=== PATIENT | female | born 1950 ===

== ENCOUNTER 2017-09-01 12:44 | Outpatient (CLI) | payer MEDICARE ==
--- NOTE | 2017-09-01 13:58 | RAD ---
TWO VIEWS RIGHT HIP: COMPARISON: None. HISTORY: Fell twice in the last few months with right lateral hip pain. FINDINGS: Two views of the right hip show no evidence of acute fracture or dislocation. There are moderate deg enerative changes in the right hip joint. No soft tissue swelling is seen. IMPRESSION: Moderate right hip osteoarthritis without acute osseous abnormality. POS: [facility]
== END 2017-09-01 12:45 | disposition home or self-care (01) ==
LOC: SCSRAD 12:44
PROVIDERS: ATTEND Family Medicine
DX: M25.551 Pain in right hip (principal); M16.11 Unilateral primary osteoarthritis, right hip

== ENCOUNTER 2017-12-12 10:35 | Outpatient (CLI) | payer MEDICARE | END 2017-12-12 10:36 | disposition home or self-care (01) | LOC: BICMRI 10:35 | PROVIDERS: ATTEND Family Medicine | DX: M51.36 Other intervertebral disc degeneration, lumbar region (principal); M48.061 Spinal stenosis, lumbar region without neurogenic claudication; M99.84 Other biomechanical lesions of sacral region; M99.83 Other biomechanical lesions of lumbar region | CPT/HCPCS: 72148 ==

== ENCOUNTER 2018-08-21 07:59 | Outpatient (CLI) | payer MEDICARE ==
--- NOTE | 2018-08-21 08:58 | ULT ---
SONOGRAM ABDOMEN COMPLETE: HISTORY: Upper abdomen pain. FINDINGS: Gallbladder has a normal appearance without evidence of stones. The common duct is 0.4 cm. Liver un remarkable without focal mass or intrahepatic biliary dilatation. No free fluid. The spleen, kidney s, and visualized portions of the abdominal aorta, IVC, and pancreas have a normal sonographic appear ance. IMPRESSION: Normal abdominal sonogram. POS: [facility]
== END 2018-08-21 08:00 | disposition home or self-care (01) ==
LOC: BICULT 07:59
PROVIDERS: ATTEND Family Medicine
DX: R10.12 Left upper quadrant pain (principal)
CPT/HCPCS: 76700

== ENCOUNTER 2019-02-09 09:21 | Outpatient (CLI) | payer MEDICARE ==
--- NOTE | 2019-02-09 11:14 | RAD ---
PA AND LATERAL VIEWS CHEST: Date: 02/09/19 HISTORY: Preoperative evaluation. FINDINGS: The heart size is normal. The lungs are expanded without focal areas of consolidation, pneumothoraces , or pleural effusions. No acute osseous abnormalities are seen. IMPRESSION: No radiographic evidence of acute cardiopulmonary process. POS: [facility]
== END 2019-02-09 09:22 | disposition home or self-care (01) ==
LOC: SCSRAD 09:21
PROVIDERS: ATTEND Family Medicine
DX: Z01.810 Encounter for preprocedural cardiovascular examination (principal)
CPT/HCPCS: 71046

== ENCOUNTER 2019-02-25 13:16 | Outpatient (CLI) | payer MEDICARE ==
--- NOTE | 2019-02-25 15:47 | BD ---
Exam: DEXA Bone Density 02/25/19 HISTORY: Postmenopausal Lumbar Spine: BMD (g/cm2) T-SCORE L1 1.123 +1.2 L2 1.202 +1.6 L3 1.234 +1.4 L4 1.243 +1.7 L1-L4 1.205 +1.4 Left Femoral Neck: 0.717 -1.2 Total Femur: 0.992 +0.4 Impression: 1. Osteopenia of the left femoral neck and normal bone mineral density of the lumbar spine. 2. Ten year fracture risk of a major osteoporotic fracture is 14% and hip fracture 1.6%. These f racture probabilities are calculated for an untreated patient. POS: [facility]
== END 2019-02-25 13:17 | disposition home or self-care (01) ==
LOC: BICMAMMO 13:16
PROVIDERS: ATTEND Obstetrics & Gynecology
DX: Z13.820 Encounter for screening for osteoporosis (principal); M81.0 Age-related osteoporosis without current pathological fracture; M85.852 Other specified disorders of bone density and structure, left thigh
CPT/HCPCS: 77080

== ENCOUNTER 2019-05-06 07:56 | Outpatient (CLI) | payer MEDICARE ==
--- NOTE | 2019-05-06 09:11 | ULT ---
Right upper quadrant ultrasound: 05/06/2019 COMPARISON: None HISTORY: Right upper quadrant pain TECHNIQUE: Multiplanar grayscale sonographic imaging of the right upper quadrant obtained. FINDINGS: Visualized pancreas is unremarkable. No focal liver lesion or intrahepatic biliary dilatation is noted. The common bile duct measures 3 mm, within normal limits. No gallbladder wall thickening or pericholecystic fluid. No gallstones are seen. The vice president payment reports a negative Foster's sign. There is mild right-sided hydronephrosis. The right kidney measures 9.4 cm in craniocaudal dimension and demonstrates no mass lesion. IMPRESSION: Mild right-sided hydronephrosis is suspected. Recommend further assessment with CT examin ation of the abdomen and pelvis. No evidence for cholelithiasis, cholecystitis, or biliary dilatation.
== END 2019-05-06 07:57 | disposition home or self-care (01) ==
LOC: BICULT 07:56
PROVIDERS: ATTEND Family Medicine
DX: R10.11 Right upper quadrant pain (principal)
CPT/HCPCS: 76705

== ENCOUNTER 2019-05-07 09:53 | Outpatient (CLI) | payer MEDICARE ==
--- NOTE | 2019-05-07 12:04 | CT ---
CT ABDOMEN AND PELVIS WITHOUT CONTRAST: Date: 05/07/19 HISTORY: Right flank pain. Mild right-sided hydronephrosis on ultrasound of previous day. FINDINGS: Absence of oral and IV contrast reduces the sensitivity of exam, particularly for evaluation of solid organs and bowel. There are mild chronic changes at the lung bases. No free air or free fluid is seen in the abdomen or pelvis. No calcified gallstones are noted. No calculi seen in the kidneys, ureters, or urinary bladder. There is prominence of the right renal p emory. The possibility of mild UPJ obstruction cannot be excluded. No left-sided hydroureteronephrosi s seen. There is a prominent right extrarenal pelvis. There is no evidence of aneurysmal dilatation of the abdominal aorta. There are degenerative changes in the spine. The patient is post hysterectomy. IMPRESSION: 1. No CT evidence of urinary tract calculi or high grade obstruction. 2. Prominent right renal pelvis versus mild UPJ obstruction. Further evaluation with IVP is recommen ded. POS: [facility]
== END 2019-05-07 09:54 | disposition home or self-care (01) ==
LOC: CT 09:53
PROVIDERS: ATTEND Family Medicine
DX: N13.30 Unspecified hydronephrosis (principal)
CPT/HCPCS: 74176

== ENCOUNTER 2019-09-07 12:30 | Outpatient (CLI) | payer MEDICARE ==
[~2019-09-07 12:30] MED LIST: Furosemide 40 MG/4 ML VIAL ONE
--- NOTE | 2019-09-07 16:04 | NM ---
Nuclear medicine renogram with Lasix Radiopharmaceutical: 8.2 mCi of technetium 99m MAG3 Pharmaceutical: 32 mg of Lasix IV 15 minutes prior to injection of the radiopharmaceutical. FINDINGS: There is symmetric uptake of the radiotracer into both kidneys from the blood pool activity with sequ ential planar images performed over 141 seconds. The split function was 55.3% on the left and 44.7% on the right. The left percent uptake was 16.2% and the right percent uptake was 13.1%. The T1/2 on t he left was 5.05 minutes and on the right 8.088 minutes. Persistent activity remains within the right renal pelvis on the delayed phase images it does mildly reduce with progression of the imaging series. IMPRESSION: Findings consistent with a mild fixed obstruction involving the right renal pelvis.
== END 2019-09-07 12:31 | disposition home or self-care (01) ==
LOC: NM 12:30
DX: N13.30 Unspecified hydronephrosis (principal)
CPT/HCPCS: 78708; A4641; A9562; J1940